=== PATIENT | male | born 1990 | race Caucasian/White ===

== ENCOUNTER 2018-05-03 00:52 | Emergency (ER) | payer BC ==
[2018-05-03] MEDS ORDERED: Triamcinolone Acetonide 40 MG/ML 1 ML MDV INJECT ONE (01:30)
--- NOTE | 2018-05-03 01:33 | EDM.PDOC ---
ED HPI GENERAL MEDICAL PROBLEM - General Chief Complaint: Skin Complaint Stated Complaint: Rash Time Seen by Provider: 05/03/18 01:10 Source of Information: Reports: Patient History Limitations: Reports: Intoxication - History of Present Illness INITIAL COMMENTS - FREE TEXT/NARRATIVE: Pt is a 27 year old male , who presents to the emergency room with complaints of skin rash spreading all over the body. Which started in the past 1-2 hrs. The rash is non itchy , and started on his arms and spread on to his neck and his back. Apparently started after he ate Eel fish, which he caught today. No difficulty with swallowing, no hoarseness of voice or loss of voice. No wheezing or shortness of breath. No weakness, tingling or numbness. Onset: Today Onset Date: 05/03/18 Onset Time: 00:15 Duration: Intermittent, Waxing/Waning Location: Reports: Generalized Severity: Moderate Improves with: Reports: None Worsens with: Reports: None Associated Symptoms: Reports: Rash. Denies: Confusion, Chest Pain, Cough, Diaphoresis, Fever/Chills, Headaches, Nausea/Vomiting, Seizure, Shortness of Breath, Syncope, Weakness - Related Data Allergies Allergy/AdvReac Type Severity Reaction Status Date / Time No Known Allergies Allergy Verified 05/03/18 01:05 Home Meds: Home Meds NK [No Known Home Meds] 05/03/18 [History] Past Medical History - Past Health History Medical/Surgical History: Denies Medical/Surgical History ED ROS GENERAL - Review of Systems Review Of Systems: See Below Constitutional: Denies: Fever, Chills, Malaise HEENT: Denies: Rhinitis, Throat Pain, Throat Swelling Respiratory: Denies: Shortness of Breath, Wheezing, Pleuritic Chest Pain, Cough , Sputum Cardiovascular: Denies: Chest Pain, Lightheadedness GI/Abdominal: Denies: Abdominal Pain, Nausea, Vomiting Musculoskeletal: Denies: Neck Pain, Shoulder Pain, Joint Pain, Joint Swelling Skin: Reports: Rash. Denies: Bruising, Pruritis Neurological: Denies: Confusion, Dizziness, Headache, Numbness, Tingling, Weakness ED EXAM, SKIN/RASH Exam: See Below General Appearance: Alert, WD/WN, No Apparent Distress, Other (intoxicated from alcohol and has been using foul language) Eye Exam: Bilateral Eye: EOMI, PERRL Ears: Normal External Exam, Normal Canal, Hearing Grossly Normal, Normal TMs Nose: Normal Inspection, Normal Mucosa, No Blood Throat/Mouth: Normal Inspection, Normal Lips, Normal Teeth, Normal Gums, Normal Oropharynx, Normal Voice, No Airway Compromise Head: Atraumatic, Normocephalic Neck: Normal Inspection, Supple, Non-Tender, Full Range of Motion Respiratory/Chest: No Respiratory Distress, Lungs Clear, Normal Breath Sounds, No Accessory Muscle Use, Chest Non-Tender Cardiovascular: Normal Peripheral Pulses, Regular Rate, Rhythm, No Edema, No Gallop, No JVD, No Murmur, No Rub GI/Abdominal: Normal Bowel Sounds, Soft, Non-Tender, No Organomegaly, No Distention, No Abnormal Bruit, No Mass Neurological: Alert, Oriented Psychiatric: Normal Affect, Normal Mood Skin: Warm, Intact, Rash (Macular large rash with wheal and flare reaction. positive dermatographism) Course - Vital Signs Text/Narrative:: Pt is using foul language constantly in the emergency room, under influence of alcohol. Patient has developed wheal and flare reaction of skin , secondary to allergy to Eel fish. There is no generalized systemic reaction noted. Pt reassured that the large macular rash on his body are in different phase of skin reaction to fish protein. It is the histamine release from the skin form the allergy causing the skin rash. Has positive dermatographism. He did receive kenalog 40mg Im. Also he has been placed on prednisone tapering dose( medication given to patient), with instruction to start it in the morning with food once daily. Return to emergency room, if he develops difficulty breathing, hoarseness of voice, loss of voice, shortness of breath, weakness, severe nausea or vomiting. Last Recorded V/S: Last Vital Signs Temp 97.9 F 05/03/18 01:08 Pulse 129 H 05/03/18 01:08 Resp 20 05/03/18 01:08 BP 144/79 H 05/03/18 01:08 Pulse Ox 98 05/03/18 01:08 Departure - Departure Time of Disposition: 02:00 Disposition: Home, Self-Care 01 Condition: Fair Clinical Impression: Fish allergy - Discharge Information *PRESCRIPTION DRUG MONITORING PROGRAM REVIEWED*: Not Applicable *COPY OF PRESCRIPTION DRUG MONITORING REPORT IN PATIENT DALILA: Not Applicable Instructions: Food Allergy, [id number] Additional Instructions: Patient has developed wheal and flare reaction of skin , secondary to allergy to Eel fish. There is no generalized systemic reaction noted. Pt reassured that the large macular rash on his body are in different phase of skin reaction to fish protein. It is the histamine release from the skin form the allergy causing the skin rash. Has positive dermatographism. He did receive kenalog 40mg Im. Also he has been placed on prednisone tapering dose( medication given to patient), with instruction to start it in the morning with food once daily. Benadryl 50mg 3 times daily an zantac 150mg twice daily to control the histamine release. also avoid scratching the skin. Return to emergency room, if he develops difficulty breathing, hoarseness of voice, loss of voice, shortness of breath, weakness, severe nausea or vomiting. Otherwise followup with primary care provider next week. - Problem List & Annotations (1) Fish allergy SNOMED Code(s): 027493297 Code(s): Z91.013 - ALLERGY TO SEAFOOD Status: Acute - Problem List Review Problem List Initiated/Reviewed/Updated: Yes - Assessment/Plan Assessment:: Skin allergy to fish Plan: Patient has developed wheal and flare reaction of skin , secondary to allergy to Eel fish. There is no generalized systemic reaction noted. Pt reassured that the large macular rash on his body are in different phase of skin reaction to fish protein. It is the histamine release from the skin form the allergy causing the skin rash. Has positive dermatographism. He did receive kenalog 40mg Im. Also he has been placed on prednisone tapering dose( medication given to patient), with instruction to start it in the morning with food once daily.Benadryl 50mg 3 times daily and zantac 150mg twice daily, avoid scratching the skin. Return to emergency room, if he develops difficulty breathing, hoarseness of voice, loss of voice, shortness of breath, weakness, severe nausea or vomiting. Otherwise followup with his Primary care provider next week.
[2018-05-03] MEDS ORDERED: predniSONE 10 MG Tab ONE (03:00)
== END 2018-05-03 02:16 | disposition home or self-care (01) ==
LOC: LB.ED 00:52
DX: T78.1XXA Other adverse food reactions, not elsewhere classified, initial encounter (principal); R21 Rash and other nonspecific skin eruption
CPT/HCPCS: 96372; 99282; A9270-GY; J3301